=== PATIENT | male | born 1995 | race Two or more races ===

== ENCOUNTER 2020-11-16 06:29 | Emergency (ER) | payer MEDICAID ==
[~2020-11-16] VITALS: Ht 190.5 cm; Wt 80.0 kg
--- NOTE | 2020-11-16 06:39 | NUR ---
pt [place] from [facility] [address] where step mom found him on ground unresponsive, administered 4mg narcan IM. PT RESTING ON GURNEY, PLACED ON SPO2/BP/ECG MONITORING AT THIS TIME. PT MAINTAINING AIRWAY, ANOx4, GCS 14. WARM BLANKETS APPLIED FOR COMFORT. GARFIELD PEREA AT BEDSIDE FOR EVAL AND POC. WCTM
[2020-11-16] MEDS ORDERED: LEVO100T5 PO (06:48)
[2020-11-16] MEDS ORDERED: LEVO88TA4 PO (06:48)
--- NOTE | 2020-11-16 06:48 | NUR ---
report from waqar hernandez.patient in bed rails up on monitor.
--- NOTE | 2020-11-16 06:59 | NUR ---
BEDSIDE REPORT TO JEREMY RN, PT CARE TRANSFERRED AT THIS TIME.
[2020-11-16 07:12] LABS: BASOPHILS % (AUTO) 1 % (0-1); EOSINOPHILS % (AUTO) 1 % (1-7); LYMPHOCYTES % (AUTO) 10 % (22-44); MEAN CORPUSCULAR HGB CONC 34.3 g/dL (33.2-36.2); MEAN PLATELET VOLUME 9.5 fL (7.4-10.4); MONOCYTES % (AUTO) 10 % (2-9); NEUTROPHILS % (AUTO) 79 % (42-75); PLATELET COUNT 162 x10^3/uL (130-400); RED BLOOD COUNT 5.26 x10^6/uL (4.38-5.82); RED CELL DISTRIBUTION WIDTH 12.5 % (9.4-14.8)
[2020-11-16 07:17] LABS: MD NO
[2020-11-16 07:24] LABS: ALBUMIN 4.3 g/dL (3.4-5.0); ANION GAP 6 mmol/L (5-15); CALCIUM 8.8 mg/dL (8.5-10.1); CHLORIDE 100 mmol/L (98-107)
[2020-11-16 07:25] LABS: SALICYLATE LEVEL < 1.7 mg/dL (2.8-20.0)
[2020-11-16 07:26] LABS: ALANINE AMINOTRANSFERASE 35 U/L (12-78); ALKALINE PHOSPHATASE 77 U/L (45-117); BILIRUBIN,TOTAL 0.9 mg/dL (0.2-1.0); CREATININE 1.77 mg/dL (0.7-1.3); TOTAL PROTEIN 7.2 g/dL (6.4-8.2)
--- NOTE | 2020-11-16 07:28 | NUR ---
patient aox4, provided urine sample. Wanting more to leave saying "its just a heroin overdose" but then falling asleep. vss.
[2020-11-16 07:34] LABS: AMPHETAMINE SCREEN, URINE Positive (Negative); BARBITURATE SCREEN, URINE Negative (Negative); BENZODIAZEPINE SCREEN, URINE Negative (Negative); CANNABINOID SCREEN, URINE Negative (Negative); COCAINE SCREEN, URINE Negative (Negative); METHADONE SCREEN, URINE Negative (Negative); OPIATE SCREEN, URINE Positive (Negative)
[2020-11-16 08:18] VITALS: BP 145/98
--- NOTE | 2020-11-16 08:18 | NUR ---
road tested patient and he walks great. aox4. strong. 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
[2020-11-17] MEDS ORDERED: LEVO88TA4 PO (01:29)
[2020-11-17] MEDS ORDERED: LEVO100T5 PO (01:29)
== END 2020-11-16 08:46 | disposition home or self-care (01) ==
LOC: ED 08:20
DX: T43.621A Poisoning by amphetamines, accidental (unintentional), initial encounter (principal); T40.1X1A Poisoning by heroin, accidental (unintentional), initial encounter; R00.9 Unspecified abnormalities of heart beat; R94.31 Abnormal electrocardiogram [ECG] [EKG]; Y92.89 Other specified places as the place of occurrence of the external cause
CPT/HCPCS: 36415; 71045; 80053; 80299; 80307; 80320; 80329; 83605; 85025; 93005; 99285; G0480

== ENCOUNTER 2020-11-17 01:22 | Emergency (ER) | payer MEDICAID ==
[~2020-11-17] VITALS: Ht 190.5 cm; Wt 85.0 kg
[~2020-11-17 01:22] MED LIST: LEVO100T5 PO; LEVO88TA4 PO
--- NOTE | 2020-11-17 01:25 | NUR ---
PT WAS SEEN HERE YESTERDAT AM FOR SAME THING. BIB [facility] FROM [facility] FOR HEROIN OD, FOUND DOWN GIVEN NARCAN 1.5 IV AND ZOFRAN 4 MG ENROUTE. DENIES OTHER DRUGS OR ETOH AT THIS TIME. PT ANOx4 BUT DROWSY, GCS 14. PT PLACED ON SPO2/BP/ECG MONITORING AT THIS TIME. WCKUNAL. YOGI WAKEFIELD AT BS FOR EVAL AND POC.
[2020-11-17] MEDS ORDERED: LEVO88TA4 PO (01:29)
[2020-11-17] MEDS ORDERED: LEVO100T5 PO (01:29)
[2020-11-17] MEDS ORDERED: SODIUM CHLORIDE FLUSH 10ML SYR IVF ONE (01:30)
--- NOTE | 2020-11-17 01:43 | NUR ---
received report on pt. currently sleepy and on cr monitor, but responds to verbal and painful stimuli.
[2020-11-17 01:59] LABS: BASOPHILS % (AUTO) 1 % (0-1); EOSINOPHILS % (AUTO) 2 % (1-7); LYMPHOCYTES % (AUTO) 12 % (22-44); MEAN CORPUSCULAR HGB CONC 34.5 g/dL (33.2-36.2); MEAN PLATELET VOLUME 9.6 fL (7.4-10.4); MONOCYTES % (AUTO) 9 % (2-9); NEUTROPHILS % (AUTO) 77 % (42-75); PLATELET COUNT 157 x10^3/uL (130-400); RED BLOOD COUNT 5.05 x10^6/uL (4.38-5.82); RED CELL DISTRIBUTION WIDTH 12.6 % (9.4-14.8)
[2020-11-17 02:03] LABS: MD NO
[2020-11-17 02:08] LABS: ALBUMIN 4.1 g/dL (3.4-5.0); ANION GAP 5 mmol/L (5-15); CALCIUM 8.4 mg/dL (8.5-10.1); CHLORIDE 101 mmol/L (98-107); CREATININE 1.69 mg/dL (0.7-1.3)
--- NOTE | 2020-11-17 02:38 | NUR ---
pt asleep and arouses to verbal stimulus. on cr monitor, and still drowsy and unable to sit up. airway intact, and good aeration and oxygenation.
--- NOTE | 2020-11-17 03:03 | NUR ---
pt awake and easily aroused with verbal stimulus. a&ox4, but remains drowsy. airway intact and patent, and good aeration and oxygenation. remains on cr monitor.
--- NOTE | 2020-11-17 04:11 | NUR ---
pt awake but gets drowsy quickly. is reminded to take deep breaths. remains on cr monitor and good aeration and oxygenation with patent airway.
[2020-11-17 04:36] VITALS: BP 146/80
--- NOTE | 2020-11-17 04:37 | NUR ---
pt awake and alert, sitting up in bed, and texting on his phone. pt a&ox4, on cr monitor and has a patent and good airway, and good aeration and oxygenation.
--- NOTE | 2020-11-17 05:14 | NUR ---
pt awake and sitting up in bed, texting on his phone. still gets drowsy occasionally, and is reminded to be awake. verbal and a&ox4.
--- NOTE | 2020-11-17 05:34 | NUR ---
pt awake and alert and ambulatory. standing steady and able to ambulate without issue. f/u and d/c instructions given and he v/u.
== END 2020-11-17 05:36 | disposition home or self-care (01) ==
LOC: MERGE 04:07 → ED 04:07
DX: T40.1X1A Poisoning by heroin, accidental (unintentional), initial encounter (principal); I45.10 Unspecified right bundle-branch block; F11.10 Opioid abuse, uncomplicated; Z72.9 Problem related to lifestyle, unspecified
CPT/HCPCS: 36415; 80048; 82040; 85025; 93005; 99284; 99285

== ENCOUNTER 2020-12-30 16:09 | Emergency (ER) | payer MEDICAID ==
[~2020-12-30] VITALS: Ht 190.5 cm; Wt 88.5 kg
--- NOTE | 2020-12-30 16:20 | NUR ---
FIRST CALL FOR TRIAGE, NO RESPONSE.
--- NOTE | 2020-12-30 16:31 | NUR ---
SECOND CALL NO ANSWER FOR TRIAGE
[2020-12-30 16:32] VITALS: BP 147/107
--- NOTE | 2020-12-30 16:38 | NUR ---
pt discharged from triage
== END 2020-12-30 16:45 | disposition home or self-care (01) ==
LOC: ED 16:25
DX: E03.8 Other specified hypothyroidism (principal); E03.4 Atrophy of thyroid (acquired); Z76.0 Encounter for issue of repeat prescription
CPT/HCPCS: 99281; 99283